=== PATIENT | male | born 2000 | race African-American/Black ===

== ENCOUNTER 2021-03-24 09:24 | Emergency (ER) | payer OTHER ==
[~2021-03-24] VITALS: Ht 188 cm; Wt 99.8 kg
--- NOTE | ~2021-03-24 | EMS ---
[facility] [address] [place] [address] EMS Patient Care Report Name: TIERNEY STEWART Room #: DEP Elfego#: [id number] Admission: 03/24/21 Attend Phys: Discharge: 03/24/21 Date of : [birth year] Report #: [id number] THIS REPORT FOR: //name// Report Transmitted: 03/26/2021 09:45 EMS Care Summary [place], [place]/[facility] Incident [id number] @ 03/24/2021 08:49 Incident Location [address] [place], [place] [id number] Patient ISAIAH GOLDSTEIN Male, 20 Years 2000 Patient Address [address] [place], [place] [id number] Patient History None Reported, Patient Allergies No known allergies, Patient Medications None Reported, Chief Complaint CHEST PAIN Disposition Transported No Lights/[place] Dispatch Reason Chest Pain (Non-Traumatic) Transported To [facility] Narrative PT FOUND STANDING IN PARKING LOT OF HIS APARTMENT COMPLEX, A&OX3, C/O CHEST PAIN. PT SAYS HIS CHEST PAIN STARTED ABOUT 0830 TODAY. PT DESCRIBES HIS PAIN [facility] [address] [place] [address] EMS Patient Care Report Name: TIERNEY STEWART Room #: DEP Elfego#: [id number] Admission: 03/24/21 Attend Phys: Discharge: 03/24/21 Date of : [birth year] Report #: [id number] A DULL ACHE OVER LEFT CENTER CHEST WALL AND RATES HIS PAIN AT 07/10 AND NON RADIATING. PT HAS AN EXTERNAL HEART MONITORING SYSTEM ADHERED TO CHEST. 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 PT ASSESSED ON SCENE, MOVED TO COT, MOVED TO AMBULANCE, VS, 02 NC, ASA 384, EKG. PT TRANSPORTED TO [facility] ER WITHOUT INCIDENT OR CHANGE. PT PLACED IN BED #09. REPORT / CARE TRANSFERERD TO STAFF. MEDIC 553 RETURNED TO SERVICE. Initial Vitals @09:00P: 98,R: 18,BP: 168/89,Pain: 7/10,GCS: 15,SpO2: 98,Revised Trauma: 12, @09:05P: 105,R: 18,BP: 159/106,Pain: 7/10,GCS: 15,SpO2: 97,Revised Trauma: 12, Assessments @09:01MENTAL:No Abnormalities,SKIN:No Abnormalities,HEENT:Head/Face: No Abnormalities,Eyes: No Abnormalities,Neck/Airway: No Abnormalities,LUNG SOUNDS:General: No Abnormalities,Left Upper: No Abnormalities,Right Upper: No Abnormalities,Left Lower: No Abnormalities,Right Lower: No Abnormalities,ABDOMEN:General: No Abnormalities,Left Upper: No Abnormalities,Right Upper: No Abnormalities,Left Lower: No Abnormalities,Right Lower: No Abnormalities,PELVIS//GI:No Abnormalities,EXTREMITIES:Left Arm: No Abnormalities,Right Arm: No Abnormalities,Left Leg: No Abnormalities,Right Leg: No Abnormalities,PULSE:NEURO:No Abnormalities, Impression Chest Pain / Discomfort Procedures @09:04Oxygen FlowRate: 4 Device: Nasal Cannula (NC) Response: ImprovedSucceeded@09:02Aspirin - 324 Milligrams (mg) - OralResponse: Improved@09:063-Lead ECGResponse: UnchangedSucceeded Timeline 08:47,Call Received 08:47,Dispatch Notified 08:49,Dispatched 08:50,En Route 08:59,On Scene 09:00,At Patient 09:00,BP: 168/89 M,PULSE: 98,RR: 18 R,SPO2: 98 Ox,ETCO2: ,BG: ,PAIN: 7,GCS: 15, 09:02,Aspirin - 324 Milligrams (mg) - Oral,Response: Improved 09:04,Oxygen FlowRate: 4 Device: Nasal Cannula (NC) Response: ImprovedSucceeded, 09:05,BP: 159/106 M,PULSE: 105,RR: 18 R,SPO2: 97 Ox,ETCO2: ,BG: ,PAIN: 7,GCS: 15, 09:06,3-Lead ECG,Response: UnchangedSucceeded, 09:06,Depart Scene 09:34,At Destination [address] [address] EMS Patient Care Report Name: [facility] STEWARTLAR[facility]OS[facility]ITAL[facility] Room #: [facility] Elfego#: [id number] Admission: 03/24/21 Attend Phys: Discharge: 03/24/21 Date of : [birth year] Report #: [id number] 09:56,Call Closed Disclaimer [email or web address] Copyright 2020 [employer] This EMS Care Summary contains data elements from the applicable legal record (which may be displayed differently). It is designed to provide pertinent information for the following purposes: continuity of care, clinical quality, and state data reporting. The complete legal record is available to ED staff and administrators of the receiving hospital in [employer] Patient Tracker. All data is provided "as is."
[2021-03-24 10:16] LABS: ABSOLUTE NEUTROPHILS 3.1 thou/uL (1.4-8.2); BASOPHILS 0.5 % (0.0-2.0); EOSINOPHILS 1.8 % (0.0-3.0); HEMATOCRIT 38.6 % (42.0-52.0); LYMPHOCYTES 35.9 % (24.0-44.0); MCH 26.9 pg (26.0-34.0); MCHC 33.7 g/dL (28.0-37.0); MCV 79.9 fL (80.0-100.0); MONOCYTES 12.2 % (1.0-8.0); PLATELET COUNT 280 thou/uL (150-400); POLYS 49.6 % (36.0-66.0); RBC 4.83 mil/uL (4.50-6.00); RDW 13.5 % (10.5-14.5); WBC 6.3 thou/uL (4.0-11.0)
[2021-03-24 10:19] LABS: CALCIUM 9.5 mg/dL (8.5-10.1); CREATININE 1.2 mg/dL (0.7-1.3); POTASSIUM 3.2 mmol/L (3.5-5.1)
[2021-03-24] MEDS ORDERED: CARVEDILOL12.5 MG PO (10:47)
[2021-03-24 13:49] VITALS: BP 112/70
--- NOTE | 2021-03-25 12:46 | EKG ---
[place] [address] [facility] [place] [address] ELECTROCARDIOGRAM REPORT Name: TIERNEY STEWART Room #: [facility]#: [id number] Admission: 03/24/21 Attend Phys: Discharge: 03/24/21 Date of : 99 Report #: [id number] 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
--- NOTE | 2021-03-25 12:48 | EKG ---
[place] [address] [facility] [place] [address] ELECTROCARDIOGRAM REPORT Name: TIERNEY STEWART Room #: [facility]#: [id number] Admission: 03/24/21 Attend Phys: Discharge: 03/24/21 Date of : 99 Report #: [id number] 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2000 Requested By: Milady Barry Order Number: [id number] MD: Wilmar Montana Measurements Intervals [place] Rate: 62 P: -34 [place]: 163 QRS: 2 QRSD: 104 T: 0 QT: 419 QTc: 426 Interpretive Statements Sinus rhythm Normal tracing Compared to ECG 03/24/2021 09:38:49 No significant change was found Electronically Signed On 03-25-2021 12:47:54 CDT by Wilmar Montana [email or web address] <ELECTRONICALLY SIGNED> By: Wilmar Montana MD, [facility] 03/25/21 1247 1330 1330 Wilmar Montana MD, [facility] /EPI
== END 2021-03-24 13:49 | disposition home or self-care (01) ==
LOC: EDBD 09:24 → ER 09:24
PROVIDERS: Emergency Medicine
DX: F41.9 Anxiety disorder, unspecified (principal); R07.89 Other chest pain; Z79.899 Other long term (current) drug therapy